=== PATIENT | male | born 1945 | race Hispanic/Latino ===

== ENCOUNTER 2021-08-26 13:29 | Observation (INO) | payer MEDICARE, MEDICAID ==
[2021-08-26 14:50] LABS: ALT (SGPT) 13 U/L (8-55); AST (SGOT) 26 U/L (5-34); Albumin 4.1 g/dL (3.4-4.8); Alkaline Phosphatase 98 U/L (40-110); Anion Gap 16 mmol/L (10-20); BUN (Urea Nitrogen) 17 mg/dL (8.4-25.7); Bilirubin, Total 0.7 mg/dL (0.2-1.2); Calc. Creatinine Clearance 0 mL/min (70-130); Calcium 9.3 mg/dL (7.8-10.44); Carbon Dioxide 18 mmol/L (23-31); Chloride 105 mmol/L (98-107); Globulin 3.6 g/dL (2.4-3.5); Glucose 123 mg/dL (83-110); Lipase 33 U/L (8-78); Potassium 4.7 mmol/L (3.5-5.1); Protein, Total 7.7 g/dL (5.8-8.1); Sodium 134 mmol/L (136-145)
[2021-08-26 14:52] LABS: Hemoglobin 14.6 g/dL (14.0-18.0); Mean Corpuscular HGB CONC 33.3 g/dL (32.0-36.0); Mean Corpuscular Hemoglobin 33.9 pg (27.0-31.0); Mean Platelet Volume 6.6 fL (7.4-10.4); Platelet Count 1716 thou/uL (130-400); RBC Distribution Width 22.6 % (11.5-14.5); Reflex for Review?? YES; White Blood Cell (WBC) Count 10.8 thou/uL (4.8-10.8)
[2021-08-26 14:53] LABS: #Basophils 0.1 thou/uL (0.0-0.2); #Eosinphils 0.3 thou/uL (0.0-0.7); #Lymphocytes 1.7 thou/uL (1.20-3.40); #Monocytes 0.7 thou/uL (0.11-0.59); %Basophils 1.3 % (0.0-1.0); %Eosinophils 3.1 % (0.0-10.0); %Lymphocytes 15.5 % (21.0-51.0); %Monocytes 6.2 % (0.0-10.0); MDiff Complete? YES; Macrocytosis SLIGHT = 6-15 cells (100X) (0-5/hpf); Platelet Morphology Comment Appears Increased; Polychromasia SLIGHT = 2-3 cells (100X) (0-2/hpf)
[2021-08-26] MEDS ORDERED: Aspirin Chewable 81 MG TAB ONE (14:58)
[2021-08-26] MEDS ORDERED: Ondansetron ODT 4 MG TAB PO PRN (16:32)
[2021-08-26] MEDS ORDERED: Acetaminophen 325 MG TAB PO PRN (16:32)
[2021-08-26 16:56] VITALS: BMI 23.4
[2021-08-26 17:08] LABS: Hemoglobin A1c 6.5 % (4.0-6.0)
[2021-08-26 22:21] LABS: SARS-CoV-2 PCR by NAA Not Detected (NotDetected)
[2021-08-27 06:08] LABS: Anion Gap 12 mmol/L (10-20); BUN (Urea Nitrogen) 15 mg/dL (8.4-25.7); Calc. Creatinine Clearance 67 mL/min (70-130); Carbon Dioxide 22 mmol/L (23-31); Chloride 107 mmol/L (98-107); Potassium 3.9 mmol/L (3.5-5.1); Sodium 137 mmol/L (136-145)
[2021-08-27 06:09] LABS: ALT (SGPT) 10 U/L (8-55); AST (SGOT) 19 U/L (5-34); Albumin 3.6 g/dL (3.4-4.8); Alkaline Phosphatase 87 U/L (40-110); Bilirubin, Total 0.8 mg/dL (0.2-1.2); Calcium 8.9 mg/dL (7.8-10.44); Cardiac Risk 5.8 (Less than 4.5); Cholesterol 140 mg/dl (< 200 Desired); Globulin 3.2 g/dL (2.4-3.5); Glucose 117 mg/dL (83-110); HDL Cholesterol 24 mg/dL (>60 Neg Risk); LDL Cholesterol, Calculated 95 mg/dL; Protein, Total 6.8 g/dL (5.8-8.1); Triglycerides 107 mg/dL (Less than 150)
[2021-08-27 06:35] LABS: Critical Call w/ Read Back 2NO.TRC; Hemoglobin 13.9 g/dL (14.0-18.0); Mean Corpuscular HGB CONC 34.6 g/dL (32.0-36.0); Mean Platelet Volume 6.3 fL (7.4-10.4); Platelet Count 1429 thou/uL (130-400); Red Blood Cell (RBC) Count 3.96 mill/uL (4.70-6.10); White Blood Cell (WBC) Count 9.8 thou/uL (4.8-10.8)
[2021-08-27 06:45] LABS: Anisocytosis MODERATE=16-30 cells (100X) (0-5/hpf); Band 8 % (5-11); Eosinophils 8 % (0-10); Giant Platelets SLIGHT; Lymphocytes 14 % (21-51); MDiff Complete? YES; Macrocytosis MODERATE=16-30 cells (100X) (0-5/hpf); Metamyelocyte 1 % (0-0); Monocytes 4 % (0-10); Neutrophil 61 % (42-75); Ovalocytes SLIGHT = 2-5 cells (100X) (0-1/hpf); Platelet Morphology Comment Appears Increased
[2021-08-27 17:15] LABS: HIV (1/2) Antibody/Antigen Non-Reactive (NonReactive); HIV 1/2 INDEX 0.08 S/CO (<1.00)
[2021-08-27] MEDS ORDERED: Rosuvastatin 20 MG TAB PO SCH (21:00)
[2021-08-28 05:38] LABS: #Basophils 0.2 thou/uL (0.0-0.2); #Eosinphils 0.8 thou/uL (0.0-0.7); #Monocytes 0.6 thou/uL (0.11-0.59); #Neutrophils 7.5 thou/uL (1.40-6.50); %Basophils 1.8 % (0.0-1.0); %Eosinophils 7.2 % (0.0-10.0); %Lymphocytes 17.9 % (21.0-51.0); %Monocytes 5.8 % (0.0-10.0); %Neutrophils 67.3 % (42.0-75.0); Hemoglobin 14.2 g/dL (14.0-18.0); Mean Corpuscular HGB CONC 33.1 g/dL (32.0-36.0); Mean Corpuscular Hemoglobin 33.6 pg (27.0-31.0); Mean Platelet Volume 6.5 fL (7.4-10.4); Platelet Count Greater than 1440 thou/uL (130-400); RBC Distribution Width 22.6 % (11.5-14.5); Red Blood Cell (RBC) Count 4.22 mill/uL (4.70-6.10); White Blood Cell (WBC) Count 11.1 thou/uL (4.8-10.8)
[2021-08-28 05:51] LABS: ALT (SGPT) 12 U/L (8-55); AST (SGOT) 22 U/L (5-34); Albumin 3.8 g/dL (3.4-4.8); Alkaline Phosphatase 100 U/L (40-110); Anion Gap 13 mmol/L (10-20); BUN (Urea Nitrogen) 15 mg/dL (8.4-25.7); Bilirubin, Total 0.8 mg/dL (0.2-1.2); Calc. Creatinine Clearance 58 mL/min (70-130); Calcium 9.1 mg/dL (7.8-10.44); Carbon Dioxide 22 mmol/L (23-31); Chloride 106 mmol/L (98-107); Globulin 3.7 g/dL (2.4-3.5); Glucose 126 mg/dL (83-110); Potassium 3.9 mmol/L (3.5-5.1); Protein, Total 7.5 g/dL (5.8-8.1); Sodium 137 mmol/L (136-145)
[2021-08-28] MEDS ORDERED: ADENOSINE 60 MG/20 ML VIAL ONE (08:41)
[2021-08-28] MEDS ORDERED: Hydroxyurea 500 MG CAP PO SCH (09:00)
[2021-08-28 11:27] VITALS: TEMP 97.8
[2021-08-28 15:45] VITALS: BP 122/63
== END 2021-08-28 15:25 | disposition home or self-care (01) ==
LOC: ERS 13:29 → 2SW 15:42
PROVIDERS: ADMIT Family Medicine; ATTEND Family Medicine
DX: R07.89 Other chest pain (principal); D47.3 Essential (hemorrhagic) thrombocythemia; E11.65 Type 2 diabetes mellitus with hyperglycemia; I08.3 Combined rheumatic disorders of mitral, aortic and tricuspid valves; I27.20 Pulmonary hypertension, unspecified; Z91.14 Patient's other noncompliance with medication regimen; Z20.822 Contact with and (suspected) exposure to COVID-19
CPT/HCPCS: 71045; 78452; 80053 ×2; 80061; 83036; 83690; 83880; 84484 ×2; 85025 ×2; 87389; 93005; 93017; 93306; 99285; A9500; U0003; U0005; 36415; 84443; 85060; G0378; J0153